=== PATIENT | male | born 1995 | race Hispanic/Latino ===

== ENCOUNTER 2019-05-12 06:15 | Emergency (ER) | payer OTHER, SELFPAY ==
[2019-05-12] MEDS ORDERED: TETANUS & DIPHTHERIA TOX,ADULT 0.5 ML VIAL ONE (06:35)
[2019-05-12 07:02] LABS: Absolute Lymphocytes (CBC) 1.2 K/uL (0.7-4.9); Basophils % 0.5 % (0-1.3); Hematocrit 40.9 % (39.6-49.0); Lymphocytes % 15.6 % (15.3-44.8); MPV 8.2 fL (7.6-11.3); RBC Red Blood Cell Count 4.67 M/uL (4.33-5.43)
[2019-05-12 07:06] LABS: BUN Blood Urea Nitrogen 9 mg/dL (7-18); Bicarbonate 24 mmol/L (21-32); Glucose Level 86 mg/dL (74-106); Potassium 3.5 mmol/L (3.5-5.1); Sodium Level 141 mmol/L (136-145)
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
[2019-05-12 08:32] VITALS: TEMP 98.7
[2019-05-12 08:33] VITALS: BP 113/67; O2SAT 100
== END 2019-05-12 08:25 | disposition home or self-care (01) ==
LOC: ER 06:15
DX: S22.31XA Fracture of one rib, right side, initial encounter for closed fracture (principal); S00.81XA Abrasion of other part of head, initial encounter; S60.512A Abrasion of left hand, initial encounter; S60.511A Abrasion of right hand, initial encounter; V28.4XXA Motorcycle driver injured in noncollision transport accident in traffic accident, initial encounter; Z23 Encounter for immunization
CPT/HCPCS: 36415; 70450; 70486; 71260; 72125; 74177; 76377; 80048; 85025; 86850; 86900; 86901; 90471; 90714; 99284; Q9967

== ENCOUNTER 2019-07-02 00:31 | Emergency (ER) | payer SELFPAY ==
[2019-07-02] MEDS ORDERED: WATER FOR INJ,STERILE 10 ML ONE (00:55)
[2019-07-02] MEDS ORDERED: AZITHROMYCIN 250 MG TAB ONE ×2 (00:55→00:57)
[2019-07-02] MEDS ORDERED: CEFTRIAXONE 1000 MG/VIAL ONE (00:55)
[2019-07-02 01:37] LABS: Urine Bacteria <20 /HPF (NONE SEEN); Urine Culture Reflex Order REFLEXED; Urine RBC <5 /HPF (NONE SEEN)
[2019-07-02 01:38] LABS: Urine Blood TRACE (NEG); Urine Glucose NEGATIVE (NEG); Urine Protein NEGATIVE (NEG); Urine pH 8.5 (5.0-7.0)
--- NOTE | 2019-07-02 01:41 | ER ---
Nurse's Notes [facility] Name: Sami Salmon Jr Age: 24 yrs Sex: Male : 1995 Arrival Date: 07/02/2019 Time: 00:33 Bed 26 Private MD: Diagnosis: Nonspecific urethritis Presentation: 07/02 00:41 Presenting complaint: Patient states: C/O stinging while urinating with discharges that wh started 3 days ago. Pt denies fever. Transition of care: patient was not received from another setting of care. Onset of symptoms was June 30, 2019. Risk Assessment: Do you want to hurt yourself or someone else? Patient reports no desire to harm self or others. Initial Sepsis Screen: Does the patient meet any 2 criteria? No. Patient's initial sepsis screen is negative. Does the patient have a suspected source of infection? Yes: Dysuria/Frequency/Urgency/UTI. Care prior to arrival: None. 00:41 Method Of Arrival: Ambulatory 00:41 Acuity: JOSEPHINE 4 Historical: - Allergies: 00:43 No Known Allergies; - Home Meds: 00:43 None [Active]; - PMHx: 00:43 None; - PSHx: 00:43 None; - Immunization history:: Adult Immunizations up to date. - Social history:: Smoking status: Patient/guardian denies using tobacco. - Ebola Screening: : Patient negative for fever greater than or equal to 101.5 degrees Fahrenheit, and additional compatible Ebola Virus Disease symptoms Patient denies exposure to infectious person. Screenin:43 Abuse screen: Denies threats or abuse. Denies injuries from another. Nutritional screening: No deficits noted. Tuberculosis screening: No symptoms or risk factors identified. Fall Risk None identified. Assessment: 00:50 General: Appears in no apparent distress. comfortable, Behavior is calm, cooperative, jb4 appropriate for age. Pain: Denies pain. Neuro: Level of Consciousness is awake, alert, obeys commands, Oriented to person, place, time, situation. Cardiovascular: Patient's skin is warm and dry. Respiratory: Airway is patent Respiratory effort is even, unlabored, Respiratory pattern is regular, symmetrical. GI: No signs and/or symptoms were reported involving the gastrointestinal system. : Reports burning with urination, discharge, green, yellow. EENT: No signs and/or symptoms were reported regarding the EENT system. Derm: Skin is intact, Skin is pink, warm \T\ dry. Musculoskeletal: Circulation, motion, and sensation intact. Range of motion: intact in all extremities. 02:00 Reassessment: Patient appears in no apparent distress at this time. Patient and/or jb4 family updated on plan of care and expected duration. Pain level reassessed. Patient is alert, oriented x 3, equal unlabored respirations, skin warm/dry/pink. Pt verbalized understanding of d/c and follow up instructions. Ambulated out of ED with steady gait. Vital Signs: 00:44 BP 139 / 87; Pulse 87; Resp 18; Temp 98.2; Pulse Ox 100% ; Weight 68.95 kg; Height 5 jb4 ft. 10 in. (177.80 cm); 02:00 BP 116 / 79; Pulse 84; Resp 16; Pulse Ox 98% on R/A; jb4 00:44 Body Mass Index 21.81 (68.95 kg, 177.80 cm) jb4 ED Course: 00:33 Patient arrived in ED. jg7 00:35 Lalo Vee NP is PHCP. pm1 00:35 Haseeb Mora MD is Attending Physician. pm1 00:41 Rakesh Erickson, BECKY is Primary Nurse. jb4 00:43 Triage completed. wh 00:43 Patient has correct armband on for positive identification. Bed in low position. Call light in reach. Side rails up X 1. Pulse ox on. NIBP on. 00:44 Arm band placed on. wh 00:55 Urine Microscopic Only Sent. ds4 02:00 No provider procedures requiring assistance completed. Patient did not have IV access jb4 during this emergency room visit. Administered Medications: 01:08 Drug: Rocephin (cefTRIAXone) 1 grams Route: IM; Site: right gluteus; jb4 02:11 Follow up: Response: No adverse reaction jb4 01:08 Drug: AZITHromycin 1 grams Route: PO; jb4 02:11 Follow up: Response: No adverse reaction jb4 Outcome: 01:40 Discharge ordered by MD. pm1 02:00 Discharged to home ambulatory. jb4 02:00 Condition: stable 02:00 Discharge instructions given to patient, Instructed on discharge instructions, follow up and referral plans. safe sex practices, Demonstrated understanding of instructions, follow-up care. 02:12 Patient left the ED. jb4 Signatures: Cuco Tenorio ds4 Lalo Vee NP SHELVING SUPERVISOR pm1 Rakesh Erickson, BECKY RN jb4 Carol Galindo Jessica jg7 Corrections: (The following items were deleted from the chart) 02:10 02:00 Reassessment: Patient appears in no apparent distress at this time. Patient jb4 and/or family updated on plan of care and expected duration. Pain level reassessed. Patient is alert, oriented x 3, equal unlabored respirations, skin warm/dry/pink. jb4
--- NOTE | 2019-07-02 01:41 | EDPHYS ---
Physician Documentation [facility] Name: Sami Salmon Jr Age: 24 yrs Sex: Male : 1995 Arrival Date: 07/02/2019 Time: 00:33 Bed 26 Private MD: ED Physician Haseeb Mora HPI: 07/02 00:48 This 24 yrs old Male presents to ER via Ambulatory with complaints of Pain pm1 With Urination. 00:48 The patient presents with symptoms include dysuria, yellow penile discharge. Onset: The pm1 symptoms/episode began/occurred 1 week(s) ago. Modifying factors: The symptoms are alleviated by nothing, the symptoms are aggravated by nothing. Associated signs and symptoms: Pertinent negatives: abdominal pain, fever, hematuria, nausea, vomiting, testicular pain or swelling. Severity of symptoms: in the emergency department the symptoms are unchanged. The patient has not experienced similar symptoms in the past. The patient has not recently seen a physician. New sexual partner 2 weeks ago, unprotected. Historical: - Allergies: 00:43 No Known Allergies; - Home Meds: 00:43 None [Active]; - PMHx: 00:43 None; - PSHx: 00:43 None; - Immunization history:: Adult Immunizations up to date. - Social history:: Smoking status: Patient/guardian denies using tobacco. - Ebola Screening: : Patient negative for fever greater than or equal to 101.5 degrees Fahrenheit, and additional compatible Ebola Virus Disease symptoms Patient denies exposure to infectious person. ROS: 00:48 Constitutional: Negative for fever, chills, and weight loss, Cardiovascular: Negative pm1 for chest pain, palpitations, and edema, Respiratory: Negative for shortness of breath, cough, wheezing, and pleuritic chest pain, Abdomen/GI: Negative for abdominal pain, nausea, vomiting, diarrhea, and constipation, Back: Negative for injury and pain. 00:48 MS/Extremity: Negative for injury and deformity, Skin: Negative for injury, rash, and discoloration. 00:48 Neuro: Negative for headache, weakness, numbness, tingling, and seizure. 00:48 : Positive for burning with urination, penile discharge, Negative for testicular pain 00:48 All other systems are negative. Exam: 00:48 Constitutional: This is a well developed, well nourished patient who is awake, alert, pm1 and in no acute distress. Head/Face: Normocephalic, atraumatic. Neck: Trachea midline, no thyromegaly or masses palpated, and no cervical lymphadenopathy. Supple, full range of motion without nuchal rigidity, or vertebral point tenderness. No Meningismus. Chest/axilla: Normal chest wall appearance and motion. Nontender with no deformity. No lesions are appreciated. Cardiovascular: Regular rate and rhythm with a normal S1 and S2. No gallops, murmurs, or rubs. No pulse deficits. Respiratory: Lungs have equal breath sounds bilaterally, clear to auscultation and percussion. No rales, rhonchi or wheezes noted. No increased work of breathing, no retractions or nasal flaring. Abdomen/GI: Soft, non-tender, with normal bowel sounds. No distension or tympany. No guarding or rebound. No evidence of tenderness throughout. Back: No spinal tenderness. No costovertebral tenderness. Full range of motion. Skin: Warm, dry with normal turgor. Normal color with no rashes, no lesions, and no evidence of cellulitis. MS/ Extremity: Pulses equal, no cyanosis. Neurovascular intact. Full, normal range of motion. 00:48 Neuro: Orientation: is normal, Motor: is normal, moves all fours, Gait: is steady, at a normal pace, without difficulty. Vital Signs: 00:44 BP 139 / 87; Pulse 87; Resp 18; Temp 98.2; Pulse Ox 100% ; Weight 68.95 kg; Height 5 jb4 ft. 10 in. (177.80 cm); 02:00 BP 116 / 79; Pulse 84; Resp 16; Pulse Ox 98% on R/A; jb4 00:44 Body Mass Index 21.81 (68.95 kg, 177.80 cm) jb4 MDM: 00:38 Patient medically screened. pm1 00:51 Data reviewed: vital signs. Data interpreted: Pulse oximetry: on room air is 100 %. pm1 Interpretation: normal. 01:39 Counseling: I had a detailed discussion with the patient and/or guardian regarding: the pm1 historical points, exam findings, and any diagnostic results supporting the discharge/admit diagnosis, lab results, the need for outpatient follow up, to return to the emergency department if symptoms worsen or persist or if there are any questions or concerns that arise at home. 07/02 00:46 Order name: Urine Microscopic Only pm1 07/02 00:58 Order name: Urine Dipstick--Ancillary (enter results) ds4 07/02 01:37 Order name: Urine Microscopic Only; Complete Time: 01:39 EDWI 07/02 01:38 Order name: Urine Dipstick-Ancillary; Complete Time: 01:39 EDWI 07/02 00:46 Order name: Urine Dipstick-Ancillary (obtain specimen); Complete Time: 00:55 pm1 Administered Medications: 01:08 Drug: Rocephin (cefTRIAXone) 1 grams Route: IM; Site: right gluteus; jb4 02:11 Follow up: Response: No adverse reaction jb4 01:08 Drug: AZITHromycin 1 grams Route: PO; jb4 02:11 Follow up: Response: No adverse reaction jb4 Disposition: 06:43 Co-signature as Attending Physician, Haseeb Mora MD I agree with the assessment and 4 plan of care. Disposition: 07/02/19 01:40 Discharged to Home. Impression: Nonspecific urethritis. - Condition is Stable. - Discharge Instructions: Urethritis, Adult. - Medication Reconciliation Form, Thank You Letter, Antibiotic Education, Prescription Opioid Use form. - Follow up: Emergency Department; When: As needed; Reason: Worsening of condition. Follow up: Private Physician; When: 2 - 3 days; Reason: Recheck today's complaints, Continuance of care, Re-evaluation by your physician. - Problem is new. - Symptoms have improved. Signatures: Dispatcher [facility] Lalo Vee, ALIA RIG OPERATOR pm1 Rakesh Erickson, BECKY RN jb4 Carol Galindo Terrence, MD MD tw4 Corrections: (The following items were deleted from the chart) 02:12 01:40 07/02/2019 01:40 Discharged to Home. Impression: Nonspecific urethritis. jb4 Condition is Stable. Forms are Medication Reconciliation Form, Thank You Letter, Antibiotic Education, Prescription Opioid Use. Follow up: Emergency Department; When: As needed; Reason: Worsening of condition. Follow up: Private Physician; When: 2 - 3 days; Reason: Recheck today's complaints, Continuance of care, Re-evaluation by your physician. Problem is new. Symptoms have improved. pm1
[2019-07-02 04:06] VITALS: TEMP 98.2
[2019-07-02 04:07] VITALS: BP 116/79; O2SAT 98
== END 2019-07-02 02:12 | disposition home or self-care (01) ==
LOC: ER 00:31
DX: N34.1 Nonspecific urethritis (principal)
CPT/HCPCS: 81003; 81015; 87086; 87088; 96372; 99283

== ENCOUNTER 2020-07-02 16:50 | Emergency (ER) | payer BC, SELFPAY ==
[2020-07-02] MEDS ORDERED: AZITHROMYCIN 250 MG TAB ONE (17:48)
--- NOTE | 2020-07-02 17:48 | ER ---
Nurse's Notes [facility] Name: Sami Salmon Jr Age: 25 yrs Sex: Male : 1995 Arrival Date: 07/02/2020 Time: 16:52 Bed 17 [facility] MD: Diagnosis: Dysuria Presentation: 07/02 16:57 Chief complaint: Patient states: Painful erection this morning, noticed blood in the jl7 urine this morning, denies pain right now. Coronavirus screen: Client denies travel out of the [place] in the last 14 days. At this time, the client does not indicate any symptoms associated with coronavirus-19. Ebola Screen: No symptoms or risks identified at this time. Initial Sepsis Screen: Does the patient meet any 2 criteria? No. Patient's initial sepsis screen is negative. Does the patient have a suspected source of infection? No. Patient's initial sepsis screen is negative. Risk Assessment: Do you want to hurt yourself or someone else? Patient reports no desire to harm self or others. Onset of symptoms was July 02, 2020. Care prior to arrival: None. 16:57 Method Of Arrival: Ambulatory [facility] 16:57 Acuity: JOSEPHINE 3 jl7 Triage Assessment: 17:00 General: Appears in no apparent distress. uncomfortable, Behavior is calm, cooperative, jl7 appropriate for age. Pain: Denies pain. Historical: - Allergies: 17:00 No Known Allergies; jl7 - Home Meds: 17:00 None [Active]; jl7 - PMHx: 17:00 None; jl7 - PSHx: 17:00 None; jl7 - Immunization history:: Adult Immunizations unknown. - Social history:: Smoking status: Patient denies any tobacco usage or history of. Screenin:15 Abuse screen: Denies threats or abuse. Nutritional screening: No deficits noted. ca1 Tuberculosis screening: No symptoms or risk factors identified. Fall Risk None identified. Assessment: 17:15 General: Appears in no apparent distress. comfortable, Behavior is calm, cooperative, ca1 appropriate for age. Pain: Denies pain. Neuro: Level of Consciousness is awake, alert, obeys commands, Oriented to person, place, time, situation. : Reports burning with urination, this afternoon blood in urine. Derm: Skin is intact, is healthy with good turgor, Skin is pink, warm \T\ dry. Musculoskeletal: Circulation, motion, and sensation intact. Capillary refill < 3 seconds. 17:51 Reassessment: Patient appears in no apparent distress at this time. Patient is alert, ca1 oriented x 3, equal unlabored respirations, skin warm/dry/pink. Vital Signs: 16:57 BP 135 / 81; Pulse 57; Resp 17; Temp 98.3; Pulse Ox 95% ; Weight 76.2 kg; Height 5 ft. jl7 10 in. (177.80 cm); Pain 0/10; 17:51 BP 128 / 79; Pulse 61; Resp 16 S; Pulse Ox 96% on R/A; ca1 16:57 Body Mass Index 24.11 (76.20 kg, 177.80 cm) jl7 ED Course: 16:52 Patient arrived in ED. ds1 17:00 Triage completed. jl7 17:00 Arm band placed on right wrist. jl7 17:01 Patient placed in waiting room, in view of staff members, Patient notified of wait time.[facility] 17:15 Sarah Slater, BECKY is Primary Nurse. ca1 17:15 Taiwo Medina PA is PHCP. [facility] 17:15 Ramesh Rothman MD is Attending Physician. [facility] 17:15 Patient has correct armband on for positive identification. Placed in gown. Bed in low ca1 position. Call light in reach. Side rails up X 1. Pulse ox on. NIBP on. Warm blanket given. 17:30 No provider procedures requiring assistance completed. Patient did not have IV access ca1 during this emergency room visit. Administered Medications: 17:40 Drug: Rocephin (cefTRIAXone) 250 mg Route: IM; Site: right gluteus; ca1 17:51 Follow up: Response: No adverse reaction ca1 17:43 Drug: AZITHromycin 1 grams Route: PO; ca1 17:52 Follow up: Response: No adverse reaction ca1 Outcome: 17:47 Discharge ordered by . [facility] 17:52 Discharged to home ambulatory. ca1 17:52 Condition: stable 17:52 Discharge instructions given to patient, Instructed on discharge instructions, follow up and referral plans. Demonstrated understanding of instructions, follow-up care. 17:52 Patient left the ED. ca1 Signatures: Taiwo Medina PA PA Jessica Moura ds1 Lynne Butler, RN RN jl7 Sarah Slater, RN RN ca1
--- NOTE | 2020-07-02 17:48 | EDPHYS ---
Physician Documentation [facility] Name: Sami Salmon Jr Age: 25 yrs Sex: Male : 1995 Arrival Date: 07/02/2020 Time: 16:52 Bed 17 Private MD: ED Physician Ramesh Rothman HPI: 07/02 17:31 This 25 yrs old Male presents to ER via Ambulatory with complaints of Blood In [facility] Urine. 17:31 The patient presents with urinary symptoms. Onset: The symptoms/episode began/occurred jm gradually, 1 day(s) ago. Modifying factors: The symptoms are alleviated by nothing, the symptoms are aggravated by urinating. Associated signs and symptoms: Pertinent positives: hematuria, Pertinent negatives: abdominal pain, fever, nausea, vomiting. The patient has not experienced similar symptoms in the past. Patient states having protected intercourse approx 2 weeks ago. . Historical: - Allergies: 17:00 No Known Allergies; jl7 - Home Meds: 17:00 None [Active]; jl7 - PMHx: 17:00 None; jl7 - PSHx: 17:00 None; jl7 - Immunization history:: Adult Immunizations unknown. - Social history:: Smoking status: Patient denies any tobacco usage or history of. ROS: 17:31 Constitutional: Negative for fever, chills, and weight loss, Cardiovascular: Negative jmm for chest pain, palpitations, and edema, Respiratory: Negative for shortness of breath, cough, wheezing, and pleuritic chest pain. 17:31 : Positive for urinary symptoms. 17:31 All other systems are negative. Exam: 17:31 Constitutional: This is a well developed, well nourished patient who is awake, alert, jmm and in no acute distress. Head/Face: atraumatic. Eyes: EOMI, no conjunctival erythema appreciated ENT: Moist Mucus Membranes Neck: Trachea midline, Supple Chest/axilla: Normal chest wall appearance and motion. Cardiovascular: Regular rate and rhythm. No edema appreciated Respiratory: Normal respirations, no respiratory distress appreciated Abdomen/GI: Non distended, soft Back: Normal ROM Skin: General appearance color normal MS/ Extremity: Moves all extremities, no obvious deformities appreciated, no edema noted to the lower extremities Neuro: Awake and alert, normal gait Psych: Behavior is normal, Mood is normal, Patient is cooperative and pleasant Vital Signs: 16:57 BP 135 / 81; Pulse 57; Resp 17; Temp 98.3; Pulse Ox 95% ; Weight 76.2 kg; Height 5 ft. jl7 10 in. (177.80 cm); Pain 0/10; 17:51 BP 128 / 79; Pulse 61; Resp 16 S; Pulse Ox 96% on R/A; ca1 16:57 Body Mass Index 24.11 (76.20 kg, 177.80 cm) 7 MDM: 17:24 Patient medically screened. [facility] 17:46 Data reviewed: vital signs, nurses notes. Counseling: I had a detailed discussion with [facility] the patient and/or guardian regarding: the historical points, exam findings, and any diagnostic results supporting the discharge/admit diagnosis, lab results, the need for outpatient follow up, to return to the emergency department if symptoms worsen or persist or if there are any questions or concerns that arise at home. ED course: Patient is alert and non toxic in appearance in the ED. Advised to notify his partner if he gets positive result along with the need to be treated. . 07/02 17:22 Order name: GC (GONORR/CHLAMYDIA) Probe [facility] 07/02 17:23 Order name: Urine Microscopic Only [facility] 07/02 17:25 Order name: Urine Dipstick--Ancillary (enter results) 07/02 17:26 Order name: Urine Culture [facility] 07/02 17:23 Order name: Urine Dipstick-Ancillary (obtain specimen); Complete Time: 17:24 [facility] Administered Medications: 17:40 Drug: Rocephin (cefTRIAXone) 250 mg Route: IM; Site: right gluteus; ca1 17:51 Follow up: Response: No adverse reaction ca1 17:43 Drug: AZITHromycin 1 grams Route: PO; ca1 17:52 Follow up: Response: No adverse reaction ca1 Disposition: 07/03 07:52 Co-signature as Attending Physician, Ramesh Rothman MD I agree with the assessment and kdr plan of care. Disposition: 07/02/20 17:47 Discharged to Home. Impression: Dysuria. - Condition is Stable. - Discharge Instructions: Dysuria. - Medication Reconciliation Form, Thank You Letter, Antibiotic Education, Prescription Opioid Use form. - Follow up: Private Physician; When: 2 - 3 days; Reason: Recheck today's complaints, Continuance of care, Re-evaluation by your physician. Signatures: Dispatcher [employer] EDRamesh Daniels MD MD kdr Mickail, Joel, PA PA jmm Leal, Jahala RN RN jl7 Sarah Slater RN RN ca1 Corrections: (The following items were deleted from the chart) 07/02 17:52 17:47 07/02/2020 17:47 Discharged to Home. Impression: Dysuria. Condition is Stable. ca1 Forms are Medication Reconciliation Form, Thank You Letter, Antibiotic Education, Prescription Opioid Use. Follow up: Private Physician; When: 2 - 3 days; Reason: Recheck today's complaints, Continuance of care, Re-evaluation by your physician. gautam
[2020-07-02] MEDS ORDERED: CEFTRIAXONE 250 MG/VIAL ONE (17:49)
[2020-07-02] MEDS ORDERED: WATER FOR INJ,STERILE 10 ML ONE (17:49)
[2020-07-02 18:22] LABS: Urine Blood TRACE (NEG); Urine Glucose NEGATIVE (NEG); Urine Protein NEGATIVE (NEG); Urine Specific Gravity 1.025 (1.005-1.030)
[2020-07-02 18:29] LABS: Urine Bacteria 20-50 /HPF (NONE SEEN)
[2020-07-02 18:30] LABS: Urine Amorphous Sediment 2+ /HPF (NONE SEEN)
[2020-07-03 12:42] VITALS: TEMP 98.3
[2020-07-03 12:43] VITALS: BP 128/79; O2SAT 96
[2020-07-05 19:25] LABS: C.trachomatis RNA,TMA Not Detected (Not Detected)
== END 2020-07-02 17:52 | disposition home or self-care (01) ==
LOC: ER 16:50
DX: R30.0 Dysuria (principal)
CPT/HCPCS: 81003; 81015; 87086; 87088; 87490; 87590; 96372; 99283; J0696

== ENCOUNTER 2021-11-28 08:37 | Emergency (ER) | payer BC ==
[2021-11-28] MEDS ORDERED: LIDOCAINE 1% MPF 5 ML VIAL ONE (09:08)
[2021-11-28] MEDS ORDERED: AZITHROMYCIN 250 MG TAB ONE (09:08)
[2021-11-28] MEDS ORDERED: CEFTRIAXONE 250 MG/VIAL ONE (09:08)
[2021-11-28 09:15] LABS: Urine Blood Trace-intact (Negative); Urine Glucose Negative (Negative); Urine Protein Negative (Negative)
[2021-11-28 09:34] LABS: Urine Bacteria 20-50 /HPF (NONE SEEN); Urine Mucus 1+ /HPF (NONE SEEN)
--- NOTE | 2021-11-28 10:11 | ER ---
Nurse's Notes [facility] Name: Sami Salmon Jr Age: 26 yrs Sex: Male : 1995 Arrival Date: 11/28/2021 Time: 08:42 Bed 12 Private MD: Diagnosis: Nonspecific urethritis Presentation: 11/28 08:53 Chief complaint: Patient states: penile discharge after intercourse 3 days ago. iw Coronavirus screen: At this time, the client does not indicate any symptoms associated with coronavirus-19. Ebola Screen: Patient negative for fever greater than or equal to 101.5 degrees Fahrenheit, and additional compatible Ebola Virus Disease symptoms Patient denies exposure to infectious person. Patient denies travel to an Ebola-affected area in the 21 days before illness onset. No symptoms or risks identified at this time. Initial Sepsis Screen: Does the patient meet any 2 criteria? No. Patient's initial sepsis screen is negative. Does the patient have a suspected source of infection? No. Patient's initial sepsis screen is negative. Risk Assessment: Do you want to hurt yourself or someone else? Patient reports no desire to harm self or others. Onset of symptoms was November 28, 2021. 08:53 Method Of Arrival: Ambulatory iw 08:53 Acuity: JOSEPHINE 4 iw Historical: - Allergies: 08:56 No Known Allergies; iw - Immunization history:: Adult Immunizations. - Social history:: Smoking status: unknown. Screenin:57 Abuse screen: Denies threats or abuse. Denies injuries from another. Nutritional iw screening: No deficits noted. Tuberculosis screening: No symptoms or risk factors identified. Fall Risk None identified. Assessment: 08:57 General: Appears in no apparent distress. Behavior is calm, cooperative. Pain: Denies iw pain. Neuro: Level of Consciousness is awake, alert, obeys commands, Oriented to person, place, time, situation, Moves all extremities. Cardiovascular: Patient's skin is warm and dry. Respiratory: Respiratory effort is even, unlabored, Respiratory pattern is regular. : Penile discharge is white. Derm: Skin is intact, is healthy with good turgor. Musculoskeletal: Range of motion: intact in all extremities. Vital Signs: 08:53 BP 135 / 90; Pulse 98; Resp 16; Temp 98.0; Pulse Ox 100% on R/A; iw ED Course: 08:42 Patient arrived in ED. am2 08:47 Lalo Vee NP is PHCP. pm1 08:47 Evgeny Santos MD is Attending Physician. pm1 08:54 Triage completed. iw 08:55 Stella Aviles RN is Primary Nurse. iw 08:56 Arm band placed on. iw 09:00 Patient has correct armband on for positive identification. iw 09:05 Urine collected: clean catch specimen, cloudy. tm3 09:13 No provider procedures requiring assistance completed. Patient did not have IV access iw during this emergency room visit. Administered Medications: 09:10 Drug: Rocephin (cefTRIAXone) 250 mg Route: IM; Site: right deltoid; iw 09:25 Follow up: Response: No adverse reaction iw 09:10 Drug: AZITHromycin 1 grams Route: PO; iw 09:20 Follow up: Response: No adverse reaction iw Medication: 09:30 VIS not applicable for this client. iw Outcome: 10:10 Discharge ordered by . pm1 10:15 Discharged to home ambulatory. iw 10:15 Condition: good 10:15 Discharge instructions given to patient, Instructed on discharge instructions, follow up and referral plans. Demonstrated understanding of instructions, follow-up care. 10:16 Patient left the ED. iw Signatures: Justin Nice tm3 Stella Aviles RN RN iw Lalo Vee NP COLLAR CUTTER pm1 Laura Stevens am2
--- NOTE | 2021-11-28 10:11 | EDPHYS ---
Physician Documentation [facility] Name: Sami Salmon Jr Age: 26 yrs Sex: Male : 1995 Arrival Date: 11/28/2021 Time: 08:42 Bed 12 Private MD: ED Physician Evgeny Santos HPI: 11/28 08:58 This 26 yrs old Male presents to ER via Ambulatory with complaints of STD pm1 Exposure. 08:58 The patient presents with urinary symptoms, penile discharge, whitish-greenish. Onset: pm1 The symptoms/episode began/occurred today. Modifying factors: The symptoms are alleviated by nothing, the symptoms are aggravated by sexual intercourse, unprotected sex 3 days ago. Associated signs and symptoms: Pertinent negatives: abdominal pain, dysuria, fever, testicular pain. Severity of symptoms: in the emergency department the symptoms are unchanged. The patient has not experienced similar symptoms in the past. The patient has not recently seen a physician. Historical: - Allergies: 08:56 No Known Allergies; iw - Immunization history:: Adult Immunizations. - Social history:: Smoking status: unknown. ROS: 08:58 Constitutional: Negative for fever, chills, and weight loss, Cardiovascular: Negative pm1 for chest pain, palpitations, and edema, Respiratory: Negative for shortness of breath, cough, wheezing, and pleuritic chest pain, MS/Extremity: Negative for injury and deformity. 08:58 Skin: Negative for injury, rash, and discoloration, Neuro: Negative for headache, weakness, numbness, tingling, and seizure. 08:58 : Positive for penile discharge, Negative for urinary symptoms, burning with urination, penile pain, testicular pain 08:58 All other systems are negative. Exam: 08:58 Constitutional: This is a well developed, well nourished patient who is awake, alert, pm1 and in no acute distress. Head/Face: Normocephalic, atraumatic. 08:58 MS/ Extremity: Pulses equal, no cyanosis. Neurovascular intact. Full, normal range of motion. 08:58 Eyes: Exam is negative for acute changes, Periorbital structures: no acute changes, Pupils: no acute changes, Extraocular movements: no acute changes. 08:58 ENT: Exam is negative for acute changes, Mouth: no acute changes, Lips: normal, moist, Oral mucosa: normal, pink and intact, moist. 08:58 Cardiovascular: Exam negative for acute changes, Rate: normal, Rhythm: regular, Pulses: no pulse deficits are appreciated. 08:58 Respiratory: Exam negative for acute changes, respiratory distress, shortness of breath. 08:58 Neuro: Exam negative for acute changes, Orientation: is normal, Mentation: is normal, Motor: is normal, moves all fours. Vital Signs: 08:53 BP 135 / 90; Pulse 98; Resp 16; Temp 98.0; Pulse Ox 100% on R/A; iw MDM: 08:58 Patient medically screened. pm1 08:58 Data reviewed: vital signs. Data interpreted: Pulse oximetry: on room air is 100 %. pm1 Interpretation: normal. 10:10 Counseling: I had a detailed discussion with the patient and/or guardian regarding: the pm1 historical points, exam findings, and any diagnostic results supporting the discharge/admit diagnosis, lab results, the need for outpatient follow up, PCP, STD clinic, to return to the emergency department if symptoms worsen or persist or if there are any questions or concerns that arise at home. 11/28 08:49 Order name: Urine Microscopic Only; Complete Time: 09:36 pm1 11/28 09:15 Order name: Urine Dipstick-Ancillary; Complete Time: 09:21 EDMS 11/28 08:49 Order name: Urine Dipstick-Ancillary (obtain specimen); Complete Time: 09:13 pm1 11/28 09:37 Order name: Urine Culture EDMS Administered Medications: 09:10 Drug: Rocephin (cefTRIAXone) 250 mg Route: IM; Site: right deltoid; iw 09:25 Follow up: Response: No adverse reaction iw 09:10 Drug: AZITHromycin 1 grams Route: PO; iw 09:20 Follow up: Response: No adverse reaction iw Disposition Summary: 11/28/21 10:10 Discharge Ordered Location: Home pm1 Problem: new pm1 Symptoms: have improved pm1 Condition: Stable pm1 Diagnosis - Nonspecific urethritis pm1 Followup: pm1 - With: Emergency Department - When: As needed - Reason: Worsening of condition Followup: pm1 - With: Private Physician - When: 2 - 3 days - Reason: Recheck today's complaints, Continuance of care, Re-evaluation by your physician Discharge Instructions: - Discharge Summary Sheet pm1 - Urethritis, Adult pm1 - Preventing Sexually Transmitted Infections, Adult pm1 Forms: - Medication Reconciliation Form pm1 - Thank You Letter pm1 - Antibiotic Education pm1 - Prescription Opioid Use pm1 Signatures: Dispatcher [employer] Stella Gannon, RN RN Lalo Silva NP [employer]CUE [employer]AT OPERATOR pm1
[2021-11-28 10:22] VITALS: BP 135/90; TEMP 98; O2SAT 100
== END 2021-11-28 10:16 | disposition home or self-care (01) ==
LOC: ER 08:37
DX: N34.1 Nonspecific urethritis (principal)
CPT/HCPCS: 87088; 87086; 96372; 99283; J0696; 81003; 81015